=== PATIENT | female | born 1995 | race Hispanic/Latino ===

== ENCOUNTER 2022-03-25 16:09 | Emergency (ER) | payer OTHER ==
[2022-03-25 17:01] LABS: Absolute Lymphocytes (CBC) 2.2 K/uL (0.7-4.9); Hematocrit 39.1 % (36.0-45.0); Lymphocytes % 26.3 % (15.3-44.8); MPV 8.9 fL (7.6-11.3); RBC Red Blood Cell Count 4.43 M/uL (3.86-4.86)
[2022-03-25] MEDS ORDERED: FAMOTIDINE 20 MG TAB ONE (17:02)
[2022-03-25 17:18] LABS: Albumin 3.9 g/dL (3.4-5.0); Bilirubin Total 0.2 mg/dL (0.2-1.0); Potassium 4.2 mmol/L (3.5-5.1); Protein, Total 7.9 g/dL (6.4-8.2)
[2022-03-25 17:21] LABS: Urine Blood Trace-lysed (Negative); Urine Glucose Negative (Negative); Urine Protein Negative (Negative); Urine Specific Gravity >=1.030 (1.005-1.030); Urine pH 5.5 (5.0-7.0)
--- NOTE | 2022-03-25 17:56 | RAD REPORT ---
EXAM DESCRIPTION: RAD - Chest Single View - 03/25/2022 5:47 pm CLINICAL HISTORY: RIB PAIN - LEFT COMPARISON: No comparisons FINDINGS: Lines: None. Lungs: No evidence of edema or pneumonia. Pleural: No significant pleural effusions or pneumothorax. Cardiac: The heart size is within normal limits. Bones: No acute fractures. Other: IMPRESSION: No acute cardiopulmonary disease.
--- NOTE | 2022-03-25 18:20 | EDPHYS ---
Physician Documentation [facility] Name: Macarena Chambers Age: 27 yrs Sex: Female : 1995 Arrival Date: 03/25/2022 Time: 16:11 Bed 15 Private MD: ED Physician Tony Zaragoza HPI: 03/25 17:13 This 27 yrs old Female presents to ER via Ambulatory with complaints of ms3 Epigastric Pain, Shoulder Pain, Constipation. 17:14 The patient presents with abdominal pain in the left upper quadrant. Onset: The ms3 symptoms/episode began/occurred acutely, 2 day(s) ago. The symptoms do not radiate. Associated signs and symptoms: Pertinent negatives: nausea, vomiting, and diarrhea. The symptoms are described as sharp. Modifying factors: The symptoms are alleviated by nothing, the symptoms are aggravated by nothing. Severity of pain: At its worst the pain was severe in the emergency department the pain is unchanged. 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 - Social history:: Smoking status: Patient denies any tobacco usage or history of. Patient/guardian denies using alcohol, street drugs. ROS: 17:14 Constitutional: Negative for fever, and chills. Neck: Negative for injury, pain, and ms3 swelling, Cardiovascular: Negative for chest pain, and palpitations. Respiratory: Negative for shortness of breath, cough, wheezing, and pleuritic chest pain, MS/Extremity: Negative for injury and deformity, Skin: Negative for injury, rash, and discoloration. 17:14 Abdomen/GI: Positive for abdominal pain. 17:14 All other systems are negative. Exam: 17:14 Constitutional: This is a well developed, well nourished patient who is awake, alert, ms3 and in no acute distress. Head/Face: Normocephalic, atraumatic. Neck: Trachea midline, no cervical lymphadenopathy. Supple, full range of motion without nuchal rigidity, or vertebral point tenderness. No Meningismus. Chest/axilla: Normal chest wall appearance and motion. Nontender with no deformity. Cardiovascular: Regular rate and rhythm with a normal S1 and S2. No gallops, murmurs, or rubs. Normal PMI, no JVD. No pulse deficits. Respiratory: Lungs have equal breath sounds bilaterally, clear to auscultation and percussion. No rales, rhonchi or wheezes noted. No increased work of breathing, no retractions or nasal flaring. Psych: Awake, alert, with orientation to person, place and time. Behavior, mood, and affect are within normal limits. 17:14 Abdomen/GI: Inspection: abdomen appears normal, Bowel sounds: normal, Palpation: mild abdominal tenderness, in the epigastric area and left upper quadrant. Vital Signs: 16:23 BP 140 / 96; Pulse 86; Resp 16; Temp 98.2; Pulse Ox 100% on R/A; Weight 95.71 kg (R); jb4 Height 5 ft. 6 in. (167.64 cm) (R); Pain 8/10; 18:30 BP 136 / 82; Pulse 80; Resp 17; Pulse Ox 100% ; Pain 4/10; jh6 16:23 Body Mass Index 34.06 (95.71 kg, 167.64 cm) jb4 MDM: 16:31 Patient medically screened. ms3 17:14 Differential diagnosis: gastroesophageal reflux disease, pancreatitis, Peptic Ulcer ms3 Disease. 18:19 Data reviewed: vital signs, nurses notes, lab test result(s), radiologic studies, plain ms3 films. Data interpreted: Pulse oximetry: on room air is 100 %. Interpretation: normal. Counseling: I had a detailed discussion with the patient and/or guardian regarding: the historical points, exam findings, and any diagnostic results supporting the discharge/admit diagnosis, lab results, radiology results, the need for outpatient follow up, to return to the emergency department if symptoms worsen or persist or if there are any questions or concerns that arise at home. ED course: Discussed labs, CXR , PE findings with patient. Patient to follow up with PMD in 2-3 days. Patient understands/ agrees with plan. All questions answered. Return precautions given to include worsening symptoms, or any other concerns. Patient is improved, in NAD, non-toxic appearing, ambulatory in ED, speaking full sentences.. 03/25 16:42 Order name: CBC with Diff; Complete Time: 17:20 ms3 03/25 16:42 Order name: CMP; Complete Time: 17:20 ms3 03/25 16:42 Order name: Lipase; Complete Time: 17:20 ms3 03/25 16:42 Order name: CXR XRAY; Complete Time: 18:19 ms3 03/25 17:21 Order name: Urine Dipstick-Ancillary; Complete Time: 17:31 EDMS 03/25 16:42 Order name: IV Saline Lock; Complete Time: 16:59 ms3 03/25 16:42 Order name: Labs collected and sent; Complete Time: 16:59 ms3 Administered Medications: 16:59 Drug: Pepcid (famotidine) 20 mg Route: IVP; Site: left antecubital; jh6 Disposition Summary: 03/25/22 18:19 Discharge Ordered Location: Home ms3 Condition: Stable ms3 Diagnosis - Upper abdominal pain, unspecified ms3 Followup: ms3 - With: Keyon Hernandez MD - When: 2 - 3 days - Reason: Recheck today's complaints Discharge Instructions: - Discharge Summary Sheet ms3 - Abdominal Pain, Adult ms3 Forms: - Medication Reconciliation Form ms3 - Thank You Letter ms3 - Antibiotic Education ms3 - Prescription Opioid Use ms3 Signatures: Dispatcher [employer] Juan Gonzalez, RN RN jb4 Tony Zaragoza DO DO ms3 bAbey Cortes RN RN jh6 Corrections: (The following items were deleted from the chart) 16:26 16:25 Allergies: No Known Allergies; lucia jbAye
--- NOTE | 2022-03-25 18:20 | ER ---
Nurse's Notes [facility] Name: Macarena Chambers Age: 27 yrs Sex: Female : 1995 Arrival Date: 03/25/2022 Time: 16:11 Bed 15 Private MD: Diagnosis: Upper abdominal pain, unspecified Presentation: 03/25 16:23 Chief complaint: Patient states: I have left sided rib pain and left shoulder pain. The jb4 shoulder pain gets better with tylenol, the rib pain does not. I woke up on Friday with the pain thinking I slept wrong. I have also been constipated since friday. Coronavirus screen: At this time, the client does not indicate any symptoms associated with coronavirus-19. Ebola Screen: No symptoms or risks identified at this time. Initial Sepsis Screen: Does the patient meet any 2 criteria? No. Patient's initial sepsis screen is negative. Does the patient have a suspected source of infection? No. Patient's initial sepsis screen is negative. Risk Assessment: Do you want to hurt yourself or someone else? Patient reports no desire to harm self or others. Onset of symptoms was March 25, 2022. Transition of care: patient was not received from another setting of care. 16:23 Method Of Arrival: Ambulatory 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 - Social history:: Smoking status: Patient denies any tobacco usage or history of. Patient/guardian denies using alcohol, street drugs. Screenin:01 Abuse screen: Denies threats or abuse. Nutritional screening: No deficits noted. 6 Tuberculosis screening: No symptoms or risk factors identified. Fall Risk IV access (20 points). Assessment: 16:59 General: Appears in no apparent distress. Behavior is calm, cooperative. Pain: 6 Complains of pain in diaphragm Pain radiates to left breast Pain currently is 5 out of 10 on a pain scale. Quality of pain is described as sharp, Pain began 2-3 days ago. Is intermittent, Alleviated by relaxation, Aggravated by eating, drinking, increased activity. GI: Abdomen is obese, Abd is soft and non tender. 17:58 Reassessment: No changes from previously documented assessment. Patient and/or family jh6 updated on plan of care and expected duration. Pain level reassessed. Patient is alert, oriented x 3, equal unlabored respirations, skin warm/dry/pink. 18:49 Reassessment: Patient and/or family updated on plan of care and expected duration. Pain jh6 level reassessed. Pain: Pain currently is 4 out of 10 on a pain scale. Vital Signs: 16:23 BP 140 / 96; Pulse 86; Resp 16; Temp 98.2; Pulse Ox 100% on R/A; Weight 95.71 kg (R); jb4 Height 5 ft. 6 in. (167.64 cm) (R); Pain 8/10; 18:30 BP 136 / 82; Pulse 80; Resp 17; Pulse Ox 100% ; Pain 4/10; jh6 16:23 Body Mass Index 34.06 (95.71 kg, 167.64 cm) jb4 ED Course: 16:11 Patient arrived in ED. as 16:25 Triage completed. jb4 16:25 Arm band placed on right wrist. jb4 16:31 Tony Zaragoza DO is Attending Physician. ms3 16:46 Abbey Cortes, RN is Primary Nurse. jh6 16:55 Inserted saline lock: 20 gauge in left antecubital area, using aseptic technique. Blood jh6 collected. 17:01 Bed in low position. Call light in reach. Side rails up X 1. jh6 17:49 CXR XRAY In Process Unspecified. EDMS 18:19 Keyon Hernandez MD is Referral Physician. ms3 18:40 No provider procedures requiring assistance completed. jh6 18:49 IV discontinued, intact, bleeding controlled, No redness/swelling at site. Pressure jh6 dressing applied. Administered Medications: 16:59 Drug: Pepcid (famotidine) 20 mg Route: IVP; Site: left antecubital; jh6 Outcome: 18:19 Discharge ordered by . ms3 18:50 Discharged to home ambulatory. jh6 18:50 Condition: good 18:50 Discharge instructions given to patient, Instructed on discharge instructions, Demonstrated understanding of instructions. 18:51 Patient left the ED. jh6 Signatures: Dispatcher [employer] Martha Bauer James, RN RN jb4 Tony Zaragoza DO DO ms3 Abbey Cortes, MARVIN RN jh6 Corrections: (The following items were deleted from the chart) 16:26 16:25 Allergies: No Known Allergies; lucia jb4
[2022-03-25 19:16] VITALS: TEMP 98.2; O2SAT 100
[2022-03-25 19:21] VITALS: BP 136/82
== END 2022-03-25 18:51 | disposition home or self-care (01) ==
LOC: ER 16:09
DX: R10.12 Left upper quadrant pain (principal); F41.9 Anxiety disorder, unspecified; Z91.010 Allergy to peanuts
CPT/HCPCS: 36415; 71045; 80053; 81003; 83690; 85025; 96374; 99284